=== PATIENT | female | born 1985 | race Caucasian/White ===

== ENCOUNTER 2018-02-28 21:52 | Emergency (ER) | payer OTHER ==
[~2018-02-28] VITALS: Ht 167.6 cm; Wt 49.9 kg
[2018-02-28] MEDS ORDERED: PHENERGAN 25 MG25 M1 PO (22:57)
[2018-02-28] MEDS ORDERED: MUCINEX1200 MG PO (22:57)
[2018-02-28] MEDS ORDERED: AZITHROMYCIN 2250 MG PO (22:57)
[2018-02-28 23:07] VITALS: BP 136/79
== END 2018-02-28 23:08 | disposition home or self-care (01) ==
LOC: M.ERS 21:52
DX: J06.9 Acute upper respiratory infection, unspecified (principal); F17.210 Nicotine dependence, cigarettes, uncomplicated; Z90.49 Acquired absence of other specified parts of digestive tract

== ENCOUNTER 2018-06-16 14:16 | Emergency (ER) | payer BC ==
[~2018-06-16] VITALS: Ht 167.6 cm; Wt 49.9 kg
[~2018-06-16 14:16] MED LIST: AZITHROMYCIN 2250 MG PO; MUCINEX1200 MG PO; PHENERGAN 25 MG25 M1 PO
[2018-06-16 14:32] LABS: URINE BILIRUBIN NEGATIVE (Negative); URINE BLOOD TRACE (Negative); URINE COLOR YELLOW; URINE GLUCOSE-RANDOM NEGATIVE (Negative); URINE KETONES NEGATIVE (Negative); URINE NITRITE-REFLEX NEGATIVE (Negative); URINE PROTEIN NEGATIVE (Negative)
[2018-06-16 14:33] LABS: URINE CLARITY HAZY; URINE LEUKOCYTES-REFLEX 2+ (Negative)
[2018-06-16 14:39] LABS: SQUAMOUS >10 Many /LPF (0-3)
[2018-06-16 14:40] LABS: CASTS None Seen /LPF (None Seen); CRYSTALS None Seen /LPF (None Seen); MUCUS 0-3 Light strn/LPF (None Seen); URINE RBC None Seen /HPF (0-2); URINE WBC-REFLEX 6-15 Few /HPF (0-5)
[2018-06-16] MEDS ORDERED: MACROBID 100 M100 M1 PO (15:46)
[2018-06-16] MEDS ORDERED: MEDROLDOSEPACK PO (15:46)
[2018-06-16] MEDS ORDERED: FLONASE 0.05%50 MCG NASAL (15:46)
[2018-06-16 15:58] VITALS: BP 145/85
== END 2018-06-16 15:58 | disposition home or self-care (01) ==
LOC: M.ERS 14:16
PROVIDERS: Nurse Practitioner Family
DX: M94.0 Chondrocostal junction syndrome [Tietze] (principal); N39.0 Urinary tract infection, site not specified; F17.210 Nicotine dependence, cigarettes, uncomplicated

== ENCOUNTER 2018-07-20 17:05 | Emergency (ER) | payer BC ==
[~2018-07-20] VITALS: Ht 167.6 cm; Wt 49.9 kg
[~2018-07-20 17:05] MED LIST changes: +FLONASE 0.05%50 MCG NASAL; +MACROBID 100 M100 M1 PO; +MEDROLDOSEPACK PO
[2018-07-20] MEDS ORDERED: PREDNISONE 20 M20 MG PO (18:07)
[2018-07-20 18:13] VITALS: BP 136/88
== END 2018-07-20 18:14 | disposition home or self-care (01) ==
LOC: M.ERS 17:05
DX: R07.81 Pleurodynia (principal); R09.1 Pleurisy; F17.210 Nicotine dependence, cigarettes, uncomplicated